=== PATIENT | female | born 1970 | race Caucasian/White ===

== ENCOUNTER 2023-01-21 04:12 | Emergency (ER) | payer BC ==
[~2023-01-21] VITALS: Ht 152.4 cm; Wt 47.6 kg
[2023-01-21] MEDS ORDERED: IPRATROPIUM BROMIDE 0.5 MG/2.5 ML NEBU NEB ONE (04:45)
[2023-01-21] MEDS ORDERED: DEXAMETHASONE SOD PHOSPHATE 4 MG INJ IV ONE (04:45)
[2023-01-21] MEDS ORDERED: IV NORMAL SALINE 1000 ML BAG IV ONE (04:45)
[2023-01-21] MEDS ORDERED: ALBUTEROL SULFATE 2.5 MG/3 ML NEBU NEB ONE (04:45)
[2023-01-21] MEDS ORDERED: DEXAMETHASONE SOD PHOSPHATE 10 MG INJ ONE (04:53)
[2023-01-21] MEDS ORDERED: ALBUTEROL SULFATE 2.5 MG/3 ML NEBU ONE (04:58)
[2023-01-21] MEDS ORDERED: IPRATROPIUM BROMIDE 0.5 MG/2.5 ML NEBU ONE (04:59)
[2023-01-21 05:05] VITALS: O2SAT 97
[2023-01-21 05:12] LABS: BASOPHILS # (AUTO) 0.1 K/UL (0.0-0.2); BASOPHILS % (AUTO) 0.9 % (0.0-2.0); EOSINOPHILS # (AUTO) 0.5 K/uL (0.0-0.7); HEMATOCRIT 41.4 % (31.2-41.9); HEMOGLOBIN 14.1 g/dL (10.9-14.3); LYMPHOCYTES # (AUTO) 1.6 K/uL (0.8-4.8); LYMPHOCYTES % (AUTO) 16.3 % (20.5-51.5); MEAN CORPUSCULAR HEMOGLOBIN 31.4 uug (24.7-32.8); MEAN CORPUSCULAR HGB CONC 34 g/dL (32.3-35.6); MEAN CORPUSCULAR VOLUME 91.9 fL (75.5-95.3); MONOCYTES # (AUTO) 0.6 K/uL (0.1-1.30); MONOCYTES % (AUTO) 6.4 % (0.0-11.0); NEUTROPHILS # (AUTO) 6.9 K/uL (1.8-8.9); NEUTROPHILS % (AUTO) 71.4 % (38.5-71.5); PLATELET COUNT (AUTO) 235 K/uL (179-408); RED CELL DISTRIBUTION WIDTH 13.4 % (12.3-17.7); WHITE BLOOD COUNT (AUTO) 9.7 K/uL (3.8-11.8)
[2023-01-21 05:18] LABS: CALCIUM 8.7 mg/dL (8.5-10.1); CREATININE 0.6 mg/dL (0.6-1.3); POTASSIUM 3.8 mmol/L (3.5-5.1)
[2023-01-21 05:23] LABS: DIFFERENTIAL COMMENT 1
[2023-01-21 05:24] LABS: BILIRUBIN,DIRECT 0.1 mg/dL (0.0-0.2); BILIRUBIN,TOTAL 0.4 mg/dL (0.2-1.0); TOTAL PROTEIN, SERUM 7.8 g/dL (6.4-8.2)
[2023-01-21 05:35] VITALS: O2SAT 99
[2023-01-21] MEDS ORDERED: AZIT250T13 PO (06:01)
[2023-01-21] MEDS ORDERED: PRED20TA PO (06:01)
[2023-01-21] MEDS ORDERED: ALBU18HF2 INH (06:01)
[2023-01-21 06:05] VITALS: O2SAT 99
[2023-01-21] MEDS ORDERED: diphenhydrAMINE 50 MG/1 ML VIAL ONE (06:50)
[2023-01-21] MEDS ORDERED: IOHEXOL 350 100 ML INFUS..BTL ONE (08:05)
[2023-01-21] MEDS ORDERED: AZIT500T PO (09:02)
[2023-01-21] MEDS ORDERED: PRED50TA PO (09:02)
[2023-01-21 09:19] VITALS: BP 97/57; O2SAT 96
== END 2023-01-21 09:20 | disposition home or self-care (01) ==
LOC: ER 04:21
DX: J98.01 Acute bronchospasm (principal); R06.02 Shortness of breath; R07.89 Other chest pain; F17.210 Nicotine dependence, cigarettes, uncomplicated; Z79.899 Other long term (current) drug therapy; Z20.822 Contact with and (suspected) exposure to COVID-19
CPT/HCPCS: 99285; 96374; 71275; 71045; 96361; 87426; 80076; 80048; 85025; 85379; 84484; 36415; 93005; 94644; J1100; Q9967; J7040; A4663; J1200; J3590